=== PATIENT | male | born 1950 | race African-American/Black ===

== ENCOUNTER 2018-11-02 11:13 | Outpatient (CLI) | payer OTHER ==
--- NOTE | 2018-11-02 11:47 | ULT ---
US Hepatic Doppler: 11/02/2018 12:00 AM CLINICAL HISTORY: Chronic hepatitis C. STUDY: Right upper quadrant ultrasound of liver. TECHNIQUE: Multiplanar grayscale and color Doppler images were obtained in a ultrasound of the right upper quadrant of the abdomen. Spectral analysis of the Doppler waveforms of the hepatic and splenic vessels were performed. COMPARISON: None. FINDINGS: Liver: Size: Normal. Echogenicity: Heterogeneous Contour: Smooth. Mass: None. Bile ducts: No intrahepatic or extrahepatic biliary dilatation. Common bile duct measures 6 mm. Gallbladder: Normal. Pancreas: Head, body, and tail appear normal. Hepatic veins: Normal waveforms. Normal directional flow. Portable veins: Normal waveforms. Normal directional flow. Hepatic arteries: Normal waveforms. Normal directional flow. Splenic vein: Normal waveforms. Normal directional flow. Splenic artery: Normal waveforms. Normal directional flow. The spleen is normal in echogenicity without focal lesions and measures 8.1cm in length. IMPRESSION: Unremarkable exam.
== END 2018-11-02 11:14 | disposition home or self-care (01) ==
LOC: BICULT 11:13
DX: B18.2 Chronic viral hepatitis C (principal)
CPT/HCPCS: 76705